=== PATIENT | male | born 1955 | race Caucasian/White ===

== ENCOUNTER 2017-03-15 10:52 | Emergency (ER) | payer OTHER ==
[~2017-03-15] VITALS: Ht 190.5 cm; Wt 101.0 kg
[2017-03-15 10:55] VITALS: BP 144/93; PULSE 80; RESP 20; TEMP 97.5; O2SAT 98
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
[2017-03-15 11:29] LABS: BASOPHIL % 0.7 % (0.0-2.0); EOSINOPHIL # 0.2 TH/MM3 (0-0.4); EOSINOPHIL % 3.2 % (0.0-4.0); HEMATOCRIT 43.7 % (39.0-51.0); HEMO FLAGS DIFF FINAL; LYMPH % 27.9 % (9.0-44.0); MEAN CORPUSCULAR HEMOGLOBIN 30.2 PG (27.0-34.0); MEAN CORPUSCULAR HGB CONC 34.3 % (32.0-36.0); MONO % 11.9 % (0.0-8.0); NEUT % 56.3 % (16.0-70.0); PLATELET COUNT 228 TH/MM3 (150-450); RED BLOOD COUNT 4.96 MIL/MM3 (4.50-5.90); RED CELL DISTRIBUTION WIDTH 12.7 % (11.6-17.2)
[2017-03-15 11:35] LABS: APTT (PATIENT) 30.8 SEC (24.3-30.1); PROTHROMBIN TIME - PATIENT 10.6 SEC (9.8-11.6)
[2017-03-15 11:45] LABS: BICARBONATE 27.7 MEQ/L (21.0-32.0); POTASSIUM 3.9 MEQ/L (3.5-5.1)
--- NOTE | 2017-03-15 11:58 | RADRPT ---
EXAM DATE/TIME: 03/15/2017 11:25 [facility] COMPARISON: No previous studies available for comparison. INDICATIONS : Left calf pain. MEDICAL HISTORY : Left leg pain and edema. Tobacco use. SURGICAL HISTORY : None. ENCOUNTER: Initial ACUITY: 4 - 6 days PAIN SCORE: 3/10 LOCATION: Left leg. TECHNIQUE: Venous ultrasound of the leg was performed from the inguinal ligament to the proximal calf. Real-nas e, color Doppler and spectral tracing, compression and augmentation techniques were used. FINDINGS: There is no evidence for deep venous thrombosis. There is complex 13 cm x 6 cm mass proximal left calf is tender to palpation. CONCLUSION: Negative for venous thrombosis Complex mass left mass left calf, hematoma versus inflammatory process. Correlation suggested. Amado Og MD FACR on March 15, 2017 at 11:55 Board Certified Radiologist. This report was verified electronically.
[2017-03-15] MEDS ORDERED: CEPH-460 PO (12:08)
[2017-03-15] MEDS ORDERED: CEPHALEXIN MONOHYDRATE 500 MG CAP PO ONE (12:15)
--- NOTE | 2017-03-15 14:04 | PD ---
Data Data Last Documented VS Vital Signs Date Time Temp Pulse Resp B/P (MAP) Pulse Ox O2 Delivery O2 Flow Rate FiO2 03/15/17 12:33 03/15/17 10:55 97.5 80 20 98 Room Air Orders Orders Complete Blood Count With Diff (03/15/17 11:17) Basic Metabolic Panel (Bmp) (03/15/17 11:17) Act Partial Throm Time (Ptt) (03/15/17 11:17) Prothrombin Time / Inr (Pt) (03/15/17 11:17) Iv Access Insert/Monitor (03/15/17 11:17) Us Leg Venous Doppler (03/15/17 11:17) Cephalexin (Keflex) (03/15/17 12:15) Edinson Bandage (03/15/17 12:07) Labs Laboratory Tests Test 03/15/17 11:15 White Blood Count 7.0 TH/MM3 Red Blood Count 4.96 MIL/MM3 Hemoglobin 15.0 GM/DL Hematocrit 43.7 % Mean Corpuscular Volume 88.0 FL Mean Corpuscular Hemoglobin 30.2 PG Mean Corpuscular Hemoglobin Concent 34.3 % Red Cell Distribution Width 12.7 % Platelet Count 228 TH/MM3 Mean Platelet Volume 7.3 FL Neutrophils (%) (Auto) 56.3 % Lymphocytes (%) (Auto) 27.9 % Monocytes (%) (Auto) 11.9 % Eosinophils (%) (Auto) 3.2 % Basophils (%) (Auto) 0.7 % Neutrophils # (Auto) 4.0 TH/MM3 Lymphocytes # (Auto) 2.0 TH/MM3 Monocytes # (Auto) 0.8 TH/MM3 Eosinophils # (Auto) 0.2 TH/MM3 Basophils # (Auto) 0.0 TH/MM3 CBC Comment DIFF FINAL Differential Comment Prothrombin Time 10.6 SEC Prothromb Time International Ratio 1.0 RATIO Activated Partial Thromboplast Time 30.8 SEC Blood Urea Nitrogen 16 MG/DL Creatinine 1.00 MG/DL Random Glucose 112 MG/DL Calcium Level 8.9 MG/DL Sodium Level 135 MEQ/L Potassium Level 3.9 MEQ/L Chloride Level 101 MEQ/L Carbon Dioxide Level 27.7 MEQ/L Anion Gap 6 MEQ/L Estimat Glomerular Filtration Rate 76 ML/MIN [facility] Supervised Visit with NOEL: Yes Narrative Course The history, exam, and medical decision-making in the associated mid-level provider note were completed with my assistance. I reviewed and agree with the findings presented. I attest that I had a [id number] encounter with the patient on the same day, and personally performed and documented my assessment and findings in the medical record. *My assessment and Findings: 61-year-old man presents to the emergency Department with swelling to his left leg. 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 Ultrasound shows complex fluid collection in the proximal calf. My suspicion is is ruptured Buchanan cyst. Hemorrhage could have the same appearance but I think is less likely. It's a little bit warm and red however I don't think there is an infection. Nonetheless will prophylactically treat with antibiotics. Diagnosis Primary Impression: Soft tissue swelling Additional Impression: Ruptured Bakers cyst Patient Instructions: General Instructions, Bakers Cyst (ED), Knee Pain (ED) Departure Forms: Tests/Procedures Additional Instruction: Take the antibiotic as prescribed. Compression wrapping on a daily basis to help with the swelling. Elevate the leg as much as possible over the next several days. Ice pack several times a day 20 minutes at a time to the affected leg. Return for any acutely new or worsening symptoms. Scripts Cephalexin (Keflex) 500 Mg Capsule 500 MG PO Q8H for Infection for 10 Days, #30 CAP 0 Refills Prov: Yash Bergman MD 03/15/17 Disposition: 01 DISCHARGE HOME Condition: Stable Yash Bergman MD Mar 15, 2017 14:04
== END 2017-03-15 12:37 | disposition home or self-care (01) ==
LOC: NEPE 10:52
DX: M79.89 Other specified soft tissue disorders (principal); M66.0 Rupture of popliteal cyst; M79.662 Pain in left lower leg
CPT/HCPCS: 80048; 85025; 85610; 85730; 93971; 99284